=== PATIENT | male | born 1995 | race Caucasian/White ===

== ENCOUNTER 2018-06-12 13:18 | Emergency (ER) | payer BC, OTHER ==
[~2018-06-12] VITALS: Ht 177.8 cm; Wt 78.7 kg
[2018-06-12] MEDS ORDERED: OXYcodone/APAP 5/325MG TABLET ONE (13:46)
[2018-06-12] MEDS ORDERED: ONDANSETRON ODT 4 MG ONE (13:46)
[2018-06-12] MEDS ORDERED: ONDANSETRON ODT 4 MG PO ONE (14:00)
[2018-06-12] MEDS ORDERED: OXYcodone/APAP 5/325MG TABLET PO ONE (14:00)
[2018-06-12] MEDS ORDERED: DIPHENHYDRAMINE 50 MG/ML, 1ML ONE (15:16)
[2018-06-12] MEDS ORDERED: METOCLOPRAMIDE 5 MG/ML, 2ML ONE (15:17)
[2018-06-12] MEDS ORDERED: METOCLOPRAMIDE 5 MG/ML, 2ML IVPush ONE (15:30)
[2018-06-12] MEDS ORDERED: SODIUM CHLORIDE FLUSH 10ML SYR IVF ONE (15:30)
[2018-06-12] MEDS ORDERED: DIPHENHYDRAMINE 50 MG/ML, 1ML IVPush ONE (15:30)
[2018-06-12] MEDS ORDERED: OMNIPAQUE 350 MG/ML, 100ML BOTTLE ONE (15:54)
[2018-06-12] MEDS ORDERED: DEXAMETHASONE 4 MG TABLET PO ONE (16:30)
[2018-06-12] MEDS ORDERED: DEXAMETHASONE 4 MG TABLET ONE (16:39)
[2018-06-12 16:41] VITALS: BP 114/76
== END 2018-06-12 16:49 | disposition home or self-care (01) ==
LOC: ED 14:14
DX: G44.319 Acute post-traumatic headache, not intractable (principal); G89.11 Acute pain due to trauma; M54.2 Cervicalgia; V00.311A Fall from snowboard, initial encounter; Y93.23 Activity, snow (alpine) (downhill) skiing, snowboarding, sledding, tobogganing and snow tubing; Y92.89 Other specified places as the place of occurrence of the external cause; Y99.8 Other external cause status
CPT/HCPCS: 70450; 70496; 70498; 72125; 96374; 96375; 99284; J1200; J2765; Q0162; Q9967